=== PATIENT | female | born 1940 | race Caucasian/White ===

== ENCOUNTER 2018-04-14 09:11 | Outpatient (CLI) | payer MEDICARE ==
--- NOTE | 2018-04-14 10:35 | RAD ---
THREE VIEWS LUMBAR SPINE: HISTORY: Chronic pain. No trauma. FINDINGS: Four lumbar-type vertebral bodies. Vacuum disk phenomenon at L3-L4. There is preservation of verteb ral body height. No fracture. Moderate degenerative change at the lumbosacral junction. There does appear to be approximately 2 mm of retrolisthesis of L4 upon S1. Hypertrophic changes in the bit tripoler ior elements and the lumbosacral junction are noted. IMPRESSION: Chronic changes as above. POS: [place]
== END 2018-04-14 09:12 | disposition home or self-care (01) ==
LOC: MADRAD 09:11
PROVIDERS: ATTEND General Practice
DX: M54.5 Low back pain (principal); M47.817 Spondylosis without myelopathy or radiculopathy, lumbosacral region
CPT/HCPCS: 72100

== ENCOUNTER 2023-12-12 07:50 | Emergency (ER) | payer MEDICARE ==
[2023-12-12 08:58] LABS: SARS-CoV-2 E Target Positive; SARS-CoV-2 N2 Target Positive; SARS-CoV-2 NAA Rapid Test DETECTED (NotDetected); SARS-CoV-2 RdRP gene Positive
== END 2023-12-12 09:35 | disposition home or self-care (01) ==
LOC: MADERS 07:50
DX: U07.1 COVID-19 (principal)
CPT/HCPCS: 71046; 87804 ×2; U0002